=== PATIENT | female | born 1985 | race Caucasian/White ===

== ENCOUNTER 2016-12-03 18:24 | Emergency (ER) | payer SELFPAY ==
[~2016-12-03] VITALS: Ht 162.6 cm; Wt 56.7 kg
[2016-12-03 18:45] VITALS: BP 116/76
--- NOTE | 2016-12-03 18:57 | Emergency Room Report ---
History of Present Illness General Chief Complaint: Flu Like Symptoms Source: Patient Present Illness [facility] The patient is a 31-year-old female presenting for facial pain, fever, and productive cough began 5 days prior. The patient was seen at an urgent care at that time and diagnosed with sinusitis. The patient was given a prescription for Augmentin. The patient states that she has been taking this antibiotic but symptoms have not changed at all. The patient describes facial pain as an 8/10 dull ache primarily to the right side of the face. The patient does admit to a history of recurrent sinusitis. Patient denies any surgical history. Patient denies any other symptoms including nausea, vomiting, neck pain or stiffness, rash, chest pain, shortness of breath, Dizziness, blurred vision Allergies: Coded Allergies: CIPROFLOXACIN (Verified Adverse Reaction, Severe, joint pain, 12/03/16) Patient History Past Medical History: see triage record Pertinent Family History: none Last Menstrual Period: 11/20/16 Now: No Reviewed Nursing Documentation: PMH: Agreed, PSxH: Agreed Nursing Documentation-PMH Past Medical History: No Stated History Review of Systems All Other Systems: negative except mentioned in HPI Physical Exam Vital Signs Date Time Temp Pulse Resp B/P Pulse Ox O2 Delivery O2 Flow Rate FiO2 12/03/16 18:34 98.8 86 15 116/76 98 Room Air Sp02 EP Interpretation: reviewed, normal General Appearance: no apparent distress, alert, GCS 15, non-toxic Head: normocephalic, atraumatic Eyes: bilateral eye PERRL, bilateral eye normal inspection ENT: hearing grossly normal, normal pharynx, no angioedema, TMs + canals normal , uvula midline, nasal congestion, other - TTP over R maxillary sinus Neck: full range of motion, supple, no bony tend, supple/symm/no masses Respiratory: chest non-tender, lungs clear, normal breath sounds, no wheezing, speaking full sentences Cardiovascular #1: regular rate, rhythm, no edema Musculoskeletal: back normal, gait/station normal, normal range of motion, non- tender Neurologic: alert, oriented x3, responsive, motor strength/tone normal, sensory intact, speech normal Psychiatric: judgement/insight normal, memory normal, mood/affect normal, no suicidal/homicidal ideation Skin: normal color, no rash, warm/dry, well hydrated Lymphatic: adenopathy - cervical Medical Decision Making PA Attestation Dr. Zacarias is my supervising physician. Patient management was discussed with my supervising physician Diagnostic Impression: Primary Impression: Sinusitis, acute ER Course The patient is a 31-year-old female presenting for facial pain, fever, and productive cough began 5 days prior Differential diagnosis include but not limited to pharyngitis, sinusitis, AOM, bronchitis, PNA Physical exam: Vitals are within normal limits. Afebrile. No apparent distress. HEENT: There is tenderness to palpation over the right maxillary sinus. Bilateral nasal congestion. Uvula is midline. There is no tonsillar edema or erythema. There is bilateral cervical lymphadenopathy. Lungs clear to auscultation bilaterally Otherwise exam is unremarkable The patient is given a prescription for azithromycin and Sudafed. The patient states that she is unable to take fluoroquinolones do to tendon pain Last Vital Signs Date Time Temp Pulse Resp B/P Pulse Ox O2 Delivery O2 Flow Rate FiO2 12/03/16 18:45 98.8 86 15 116/76 98 Room Air Status: improved Disposition: HOME, SELF-CARE Condition: Improved Scripts Pseudoephedrine Hcl* (SUDAFED*) 60 Mg Tablet 60 MG PO Q6H, #15 TAB Prov: GEORGIA HUDSON P.A. 12/03/16 Azithromycin (AZITHROMYCIN) 500 Mg Tablet 500 MG ORAL DAILY, #3 TAB Prov: GEORGIA HUDSON P.A. 12/03/16 GEORGIA HUDSON Dec 03, 2016 18:57
[2016-12-03] MEDS ORDERED: AZITHROMYCIN500 MG ORAL (18:58)
[2016-12-03] MEDS ORDERED: PSEUDOEPHEDRINE60 MG PO (19:00)
[2016-12-03 19:04] VITALS: BP 116/76
== END 2016-12-03 19:05 | disposition home or self-care (01) ==
LOC: EMR 18:45
DX: J01.90 Acute sinusitis, unspecified (principal); Z88.1 Allergy status to other antibiotic agents
CPT/HCPCS: 99284